=== PATIENT | female | born 1940 | race Caucasian/White ===

== ENCOUNTER 2017-09-03 07:29 | Day surgery (SDC) | payer OTHER ==
[~2017-09-03] VITALS: Ht 152.4 cm; Wt 53.8 kg
[~2017-09-03 07:29] MED LIST: SODIUM CHLORIDE 0.9% 1000ML 1,000 ML IV ONE
[2017-09-03 07:35] VITALS: BP 167/89
[2017-09-03] MEDS ORDERED: LIDOCAINE HCL 2% 20ML ONE (09:18)
[2017-09-03] MEDS ORDERED: PROPOFOL 1000 MG/100 ML 100 ML IV ONE (09:18)
[2017-09-03] MEDS ORDERED: L.AC1CAP6 PO (09:19)
[2017-09-03] MEDS ORDERED: CRANBERRY VIT PO (09:19)
[2017-09-03] MEDS ORDERED: POTASSIUM PO (09:19)
[2017-09-03] MEDS ORDERED: ESTR5PAT TD (09:19)
[2017-09-03] MEDS ORDERED: VITAMIN B12 PO (09:19)
[2017-09-03] MEDS ORDERED: VIT D3 PO (09:19)
[2017-09-03] MEDS ORDERED: FISH OIL PO (09:19)
[2017-09-03] MEDS ORDERED: MVIT PO (09:19)
[2017-09-03] MEDS ORDERED: NAPR-1180 PO (09:19)
[2017-09-03] MEDS ORDERED: TRAZODONE PO (09:19)
[2017-09-03] MEDS ORDERED: FLUOXETINE PO (09:19)
[2017-09-03] MEDS ORDERED: LORA1TAB3 PO (09:19)
[2017-09-03] MEDS ORDERED: LOMOTIL PO (09:19)
[2017-09-03] MEDS ORDERED: IRBE300T19 PO (09:19)
[2017-09-03 09:37] VITALS: BP 95/54
[2017-09-03 10:02] VITALS: BP 146/80
== END 2017-09-03 10:20 ==
LOC: DAH 07:29 → ENDO 07:29
PROVIDERS: ATTEND Internal Medicine Gastroenterology
DX: K52.9 Noninfective gastroenteritis and colitis, unspecified (principal); K57.30 Diverticulosis of large intestine without perforation or abscess without bleeding; Z88.2 Allergy status to sulfonamides; Z88.8 Allergy status to other drugs, medicaments and biological substances; Z80.3 Family history of malignant neoplasm of breast; Z79.899 Other long term (current) drug therapy; I10 Essential (primary) hypertension; D64.9 Anemia, unspecified; M19.90 Unspecified osteoarthritis, unspecified site; C90.00 Multiple myeloma not having achieved remission; Z85.42 Personal history of malignant neoplasm of other parts of uterus; Z90.710 Acquired absence of both cervix and uterus
CPT/HCPCS: 45380; 88305; 93005; A4606; J2704; J3490; J7030